=== PATIENT | male | born 1950 | race Caucasian/White ===

== ENCOUNTER → 2017-02-14 | Outpatient (CLI) | payer MEDICARE ==
--- NOTE | ~2017-02-14 | US85 ---
[facility] A Service of [facility] RADIOLOGY TEXT RESULTS PATIENT: CONCEPCION MCKEON LOCATION: CNIV : 52 UNIT #: [id number] AGE: [address]: Grant Washington MD SEX: M ORDER DR: [id number] [facility] [address] [place], [place] [address] [id number] O MR#: [id number] Acc #: [id number] NAME: CONCEPCION MCKEON : 1950 SEX: M STUDY DATE/TIME: 02/14/2017 16:11 UNIT: CNIV ROOM: STUDY DESCRIPTION: [facility] or [facility] Stdy Attending Physician: Grant Washington M.D. Referring Physician: Grant Washington M.D. Ordering Physician: Grant Washington M.D. Primary Care Physician: Grant Washington M.D. MEDICAL IMAGING REPORT This report is preliminary unless electronic signature is present EXAM Left lower extremity venous duplex 02/14/2017 HISTORY Left lower extremity pain and edema for 1 year. Evaluate for deep vein thrombosis. TECHNIQUE Venous ultrasound examination of the left lower extremity was performed using grayscale, spectral Doppler and color flow Doppler imaging. FINDINGS The examination is negative. There is no evidence of left lower extremity deep venous thrombus from the groin to the lower calf. Visualized greater saphenous vein is also patent. IMPRESSION Negative examination. No evidence of left lower extremity deep venous thrombosis. Dictated by... Ehsan Corea M.D. THIS IS AN ELECTRONICALLY VERIFIED REPORT Ehsan Corea M.D. at 02/15/2017 2:14 PM SOURAV/amaury TD: 02/15/2017 07:22 JOB #: [id number] MEDICAL IMAGING REPORT [facility] A [facility] of [facility] RADIOLOGY TEXT RESULTS PATIENT: CONCEPCION MCKEON LOCATION: CNIV : 51 UNIT #: [id number] AGE: [address]: Grant Washington MD SEX: M ORDER DR: Page 1 of 1 COPY
--- NOTE | ~2017-02-14 | MR113 ---
[facility] A Service of [facility] RADIOLOGY TEXT RESULTS PATIENT: CONCEPCION MCKEON LOCATION: CNIV : 51 UNIT #: [id number] AGE: [address]: Grant Washington MD SEX: M ORDER DR: [id number] [facility] [address]. [place], [place] [address] [id number] O MR#: [id number] Acc #: [id number] NAME: CONCEPCION MCKEON : 1950 SEX: M STUDY DATE/TIME: 02/14/2017 17:25 UNIT: CNIV ROOM: STUDY DESCRIPTION: MR Lumbar Wo Contrast Attending Physician: Grant Washington M.D. Referring Physician: Grant Washington M.D. Ordering Physician: Grant Washington M.D. Primary Care Physician: Grant Washington M.D. MRI CENTER REPORT This report is preliminary unless electronic signature is present. EXAM MRI of the lumbar spine without contrast dated 02/14/2017 COMPARISON None. HISTORY Chronic low back pain for many years, worsening in the last 2 years. Difficulty bending and standing. FINDINGS Multisequence, multiplanar imaging of the lumbar spine was obtained without contrast. Schmorl nodes are noted along the superior endplate of L5 and to a lesser degree at S1. No fracture or subluxation is seen. Minimal edematous endplate changes are at L4-5. There is an edematous lesion in the left lateral L2 vertebral body measuring 1.5 x 1.1 x 1.3 cm. It has fatty signal characteristics also. Another fatty lesion with minimal edema is noted along the left lateral aspect of L1 vertebral body, seen only in the sagittal images measuring up to 9 mm in height. These have nonaggressive appearance without any associated pathological fracture or extraosseous soft tissue components. Conus terminates at inferior T12 close to T12-L1. Signal of conus and cauda equina are within normal limits. Pre- and paravertebral soft tissues do not demonstrate any significant abnormality. In the inferior left kidney, there is a 1.9 x 1.6 cm lesion with a dependent crescent of hypointense T2 signal. It could represent minimal hemorrhage or protein along the dependent aspect of a left renal cyst. It is incompletely characterized. A few smaller increased T2 and decreased T1 signal lesions are noted within the left inferior renal hilum too. L1-2: Minimal degenerative disc signal loss but otherwise unremarkable. [facility] A Service of [facility] & [facility] RADIOLOGY TEXT RESULTS PATIENT: CONCEPCION MCKEON LOCATION: CNIV : 51 UNIT #: [id number] AGE: [address]: Grant Washington MD SEX: M ORDER DR: L2-3: Minimal degenerative disc signal loss but otherwise unremarkable. L3-4: Mild concentric disc bulge without any significant canal stenosis or neural foraminal narrowing. L4-5: Concentric disc bulge with mild inferior bilateral neural foraminal narrowing. Borderline-sized canal and minimal bilateral facet change. L5-S1: Concentric disc bulge with mild inferior bilateral neural foraminal encroachment without significant canal stenosis. Minimal right facet hypertrophic change. IMPRESSION 1. There are lesions within L3 and L2 vertebral bodies which have fatty signal and edematous signal changes. They are probably nonaggressive lesions like atypical hemangioma based on age and statistics. No associated pathological fracture or extraosseous soft tissue components are seen. 2. Mild degenerative changes are noted in the lumbar spine as described above. Dictated by... Shalonda Patel M.D. THIS IS AN ELECTRONICALLY VERIFIED REPORT Shalonda Patel M.D. at 02/15/2017 4:43 PM CPR/mjs TD: 02/15/2017 13:52 JOB #: [id number] MRI CENTER REPORT Page 1 of 1 COPY
== END | disposition home or self-care (01) ==
LOC: CNIV 10:29
DX: M79.89 Other specified soft tissue disorders (principal); M54.5 Low back pain; M89.9 Disorder of bone, unspecified; M47.896 Other spondylosis, lumbar region
CPT/HCPCS: 72148; 93971